=== PATIENT | female | born 1985 | race Two or more races ===

== ENCOUNTER 2021-01-23 11:07 | Inpatient (IN) | payer OTHER ==
[~2021-01-23] VITALS: Ht 157.5 cm; Wt 97.3 kg
[2021-01-23 11:17] VITALS: BP 133/89
[2021-01-23] MEDS: LACTATED RINGERS 1,000 ML IV SCH ×2 (11:50→21:30)
[2021-01-23] MEDS ORDERED: OXYTOCIN 30U/ 0.9% NaCL 500ML 500 ML ONE (11:51)
[2021-01-23] MEDS ORDERED: LIDOCAINE 1%, 20ML ONE (11:51)
[2021-01-23] MEDS ORDERED: MISOPROSTOL 200 MCG TABLET ONE (11:51)
[2021-01-23] MEDS ORDERED: NEWBORN KIT ONE (11:51)
[2021-01-23] MEDS ORDERED: OXYTOCIN 30U/ 0.9% NaCL 500ML 500 ML IV PRN (12:00)
[2021-01-23] MEDS ORDERED: CALCIUM CARBONATE 500 MG TAB.CHEW PO PRN (12:00)
[2021-01-23] MEDS ORDERED: TERBUTALINE 1 MG/ML, 1ML IVPush PRN (12:00)
[2021-01-23] MEDS ORDERED: FENTANYL PF 100 MCG/2ML IV PRN (12:00)
[2021-01-23] MEDS ORDERED: OXYTOCIN 30U/ 0.9% NaCL 500ML 500 ML IV ONE (12:00)
[2021-01-23] MEDS ORDERED: ONDANSETRON 2MG/ML, 2ML IVPush PRN (12:00)
[2021-01-23] MEDS ORDERED: TERBUTALINE 1 MG/ML, 1ML SQ PRN (12:00)
[2021-01-23 12:17] LABS: BASOPHILS % (AUTO) 0 % (0-1); EOSINOPHILS % (AUTO) 6 % (1-7); LYMPHOCYTES % (AUTO) 15 % (22-44); MEAN CORPUSCULAR HGB CONC 34.8 g/dL (32.4-35.8); MONOCYTES % (AUTO) 5 % (2-9); NEUTROPHILS % (AUTO) 75 % (42-75); PLATELET COUNT 204 x10^3/uL (130-400); RED CELL DISTRIBUTION WIDTH 13.7 % (9.6-15.2)
[2021-01-23] MEDS: FENTANYL PF 100 MCG/2ML IVPush PRN ×2 (13:16→14:20)
[2021-01-23] MEDS ORDERED: OXYTOCIN 10 UNITS/ML, 1ML ONE (16:18)
[2021-01-23] MEDS ORDERED: METHYLERGONOVINE 0.2 MG/ML IM PRN (17:30)
[2021-01-23] MEDS ORDERED: SIMETHICONE 80 MG CHEW TAB PO PRN (17:30)
[2021-01-23] MEDS ORDERED: OXYTOCIN 10 UNITS/ML, 1ML IM PRN (17:30)
[2021-01-23] MEDS ORDERED: HYDROcodone/APAP 5/325 TABLET PO PRN ×2 (17:30)
[2021-01-23] MEDS ORDERED: CARBOPROST TROMETHAMINE 250 MCG/ML, 1ML IM PRN (17:30)
[2021-01-23] MEDS ORDERED: IBUPROFEN 600 MG TABLET PO PRN (17:30)
[2021-01-23] MEDS: PLEASE ENTER ALLERGIES MC SCH (17:30)
[2021-01-23] MEDS ORDERED: DOCUSATE 100 MG CAPSULE PO PRN (17:30)
[2021-01-23] MEDS ORDERED: ONDANSETRON 2MG/ML, 2ML IV PRN (17:30)
[2021-01-23] MEDS ORDERED: MISOPROSTOL 200 MCG TABLET PR PRN (17:30)
[2021-01-23] MEDS ORDERED: ACETAMINOPHEN 325 MG TABLET PO PRN (17:30)
[2021-01-23] MEDS ORDERED: MISOPROSTOL 200 MCG TABLET PR ONE (19:00)
[2021-01-23 19:50] VITALS: BP 126/83
[2021-01-23] MEDS: OXYTOCIN 30U/ 0.9% NaCL 500ML 500 ML IV SCH (22:47)
[2021-01-24 01:00] VITALS: BP 116/78
[2021-01-24 01:14] LABS: BASOPHILS % (AUTO) 0 % (0-1); EOSINOPHILS % (AUTO) 0 % (1-7); LYMPHOCYTES % (AUTO) 11 % (22-44); MEAN CORPUSCULAR HEMOGLOBIN 33.9 pg (27.0-34.8); MEAN CORPUSCULAR HGB CONC 34.6 g/dL (32.4-35.8); MEAN PLATELET VOLUME 7.9 fL (7.4-10.4); MONOCYTES % (AUTO) 7 % (2-9); NEUTROPHILS % (AUTO) 82 % (42-75); PLATELET COUNT 196 x10^3/uL (130-400); RED BLOOD COUNT 3.28 x10^6/uL (3.82-5.3); RED CELL DISTRIBUTION WIDTH 13.3 % (9.6-15.2)
[2021-01-24] MEDS: PLEASE ENTER ALLERGIES MC SCH ×2 (01:30→09:30)
[2021-01-24] MEDS: OXYTOCIN 30U/ 0.9% NaCL 500ML 500 ML IV SCH (03:30)
[2021-01-24 04:15] VITALS: BP 107/74
[2021-01-24] MEDS: LACTATED RINGERS 1,000 ML IV SCH (05:30)
[2021-01-24 08:16] VITALS: BP 107/73
[2021-01-24] MEDS ORDERED: PRENATAL VIT/IRON/FA 1 EACH TABLET PO SCH (09:00)
[2021-01-24] MEDS ORDERED: IBUP-1222 PO (10:58)
[2021-01-24] MEDS ORDERED: SENN-92 PO (10:59)
== END 2021-01-24 18:18 | disposition home or self-care (01) | DRG 807 ==
LOC: LDOP 11:07 → EDIP 11:42 → LDIP 12:19 → 2NW 19:34 → EDSTATUS 01-30 11:06
PROVIDERS: ADMIT Obstetrics & Gynecology; ATTEND Obstetrics & Gynecology
PROC: 10E0XZZ Delivery of Products of Conception, External Approach (ICD-10-PCS; principal; 2021-01-23)
PROC: 3E033VJ Introduction of Other Hormone into Peripheral Vein, Percutaneous Approach (ICD-10-PCS; 2021-01-23)
PROC: 0HQ9XZZ Repair Perineum Skin, External Approach (ICD-10-PCS; 2021-01-23)
PROC: 10907ZC Drainage of Amniotic Fluid, Therapeutic from Products of Conception, Via Natural or Artificial Opening (ICD-10-PCS; 2021-01-23)
DX: O99.214 Obesity complicating childbirth (principal); Z37.0 Single live birth; O70.0 First degree perineal laceration during delivery; Z3A.39 39 weeks gestation of pregnancy; E66.9 Obesity, unspecified; F32.9 Major depressive disorder, single episode, unspecified; O99.344 Other mental disorders complicating childbirth
CPT/HCPCS: 36415; 85025; 86592; 86850; 86900; G0378; J3010; J2590; J7120